=== PATIENT | female | born 1945 | race Caucasian/White ===

== ENCOUNTER → 2017-08-16 | Outpatient (CLI) | payer OTHER ==
[~2017-08-16] MED LIST: CLONAZEPAM 1 MG1 M1; CORTEF 20 MG TA20 MG; COUMADIN 5 MG TA5 M1; LEVOTHYROXINE100 MC1 IV; REMERON15 MG; SORINE 80 MG TA80 M1
== END ==
LOC: CAT 06:36
DX: J32.9 Chronic sinusitis, unspecified (principal)